=== PATIENT | female | born 1990 | race Caucasian/White ===

== ENCOUNTER 2017-05-04 12:03 | Emergency (ER) | payer OTHER, SELFPAY ==
[2017-05-04] MEDS ORDERED: Ibuprofen 800 MG TAB ONE (12:32)
== END 2017-05-04 13:18 | disposition home or self-care (01) ==
LOC: NAV ERS 12:03
DX: J11.1 Influenza due to unidentified influenza virus with other respiratory manifestations (principal); J45.909 Unspecified asthma, uncomplicated; F41.9 Anxiety disorder, unspecified; F32.9 Major depressive disorder, single episode, unspecified; F17.210 Nicotine dependence, cigarettes, uncomplicated
CPT/HCPCS: 99283

== ENCOUNTER 2017-08-30 15:18 | Emergency (ER) | payer SELFPAY | END 2017-08-30 16:28 | disposition home or self-care (01) | LOC: NAV ERS 15:18 | DX: H66.92 Otitis media, unspecified, left ear (principal); H61.22 Impacted cerumen, left ear; I10 Essential (primary) hypertension; J45.909 Unspecified asthma, uncomplicated; F41.9 Anxiety disorder, unspecified; F32.9 Major depressive disorder, single episode, unspecified; F17.210 Nicotine dependence, cigarettes, uncomplicated | CPT/HCPCS: 69210 ==

== ENCOUNTER 2018-02-20 11:42 | Emergency (ER) | payer MEDICAID, OTHER ==
[2018-02-20] MEDS ORDERED: Sulfameth/Trimethoprim DS 800-160mg TAB ONE (12:42)
[2018-02-20] MEDS ORDERED: Cephalexin 250 MG CAP ONE (12:42)
== END 2018-02-20 12:50 | disposition home or self-care (01) ==
LOC: NAV ERS 11:42
DX: L03.115 Cellulitis of right lower limb (principal); J45.909 Unspecified asthma, uncomplicated; F41.9 Anxiety disorder, unspecified; F32.9 Major depressive disorder, single episode, unspecified; F17.210 Nicotine dependence, cigarettes, uncomplicated
CPT/HCPCS: 99283